=== PATIENT | male | born 1960 | race Asian ===

== ENCOUNTER 2019-10-19 00:06 | Emergency (ER) | payer OTHER ==
[~2019-10-19] VITALS: Ht 175.3 cm; Wt 92.8 kg
[2019-10-19 00:10] VITALS: Ht 175.3 cm; Wt 92.8 kg
[2019-10-19 01:10] LABS: BASOPHIL % 0.4 % (0-2); PLATELET COUNT 198 x10^3mcL (130-400); RED CELL DISTRIBUTION WIDTH 11.9 % (11.5-14.5)
[2019-10-19 01:23] LABS: CALCIUM 9.2 mg/dL (8.5-10.1); CARBON DIOXIDE 28.2 mmol/L (21-32); CHLORIDE SERUM 104 mmol/L (98-107); CREATININE SERUM 1.1 mg/dL (0.7-1.3); GFR1 > 60 mL/min; GLUCOSE SERUM 104 mg/dL (74-106); SODIUM SERUM 141 mmol/L (136-145)
[2019-10-19 01:31] LABS: ALBUMIN 4.1 g/dL (3.4-5.0); ALKALINE PHOSPHATASE 88 U/L (46-116); ALT/SGPT 31 U/L (16-63); AST/SGOT 16 U/L (15-37); BILIRUBIN TOTAL 1.31 mg/dL (0.20-1.00); TOTAL PROTEIN, SERUM 7.6 g/dL (6.4-8.2)
[2019-10-19 02:31] VITALS: BP 112/63
== END 2019-10-19 02:31 | disposition home or self-care (01) ==
LOC: ED 00:06
PROVIDERS: Emergency Medicine
DX: J40 Bronchitis, not specified as acute or chronic (principal); J06.9 Acute upper respiratory infection, unspecified; I10 Essential (primary) hypertension; N40.0 Benign prostatic hyperplasia without lower urinary tract symptoms
CPT/HCPCS: 36415; 87804; Q0092